=== PATIENT | female | born 1955 | race Caucasian/White ===

== ENCOUNTER 2022-01-13 11:53 | Day surgery (SDC) | payer BC ==
[~2022-01-13] VITALS: Ht 160 cm; Wt 62.7 kg
[2022-01-13] MEDS ORDERED: ALPRAZOLAM0.5 MG PO (12:08)
[2022-01-13] MEDS ORDERED: ARMOUR THYROID15 MG PO (12:09)
[2022-01-13] MEDS ORDERED: LISINOPRIL5 MG PO (12:09)
[2022-01-13] MEDS ORDERED: ESZOPICLONE2 MG PO (12:09)
[2022-01-13] MEDS ORDERED: ATORVASTATIN CA20 MG PO (12:09)
[2022-01-13] MEDS ORDERED: PREMPRO 0.45-11 EACH PO (12:10)
[2022-01-13] MEDS ORDERED: URSODIOL300 MG PO (12:10)
[2022-01-13] MEDS ORDERED: ADULT LOW DOSE81 MG PO (12:26)
[2022-01-13] MEDS ORDERED: CENTRAVITES 501 EACH PO (12:27)
--- NOTE | 2022-01-13 14:13 | NUR ---
01/13/22 1413 Vijaya Joseph 1352 PT ARRIVED IN PACU SLEEPY WITH NO C/O'S. ABD SOFT. 1405 DR AT BEDSIDE. 1413 RESTING. REU.
--- NOTE | 2022-01-14 17:36 | OR ---
[facility] [address] [place], [place] [address] Signed DATE OF OPERATION: 01/13/2022 SURGEON: Janes Tejeda MD PREOPERATIVE DIAGNOSES: 1. Colon screening. 2. Known history of diverticulosis. POSTOPERATIVE DIAGNOSES: 1. Olivo-diverticulosis (extensive). 2. Probable polyp at 45 cm (excised). PROCEDURE: Total colonoscopy to cecum with cold morcellation polypectomy x1. ANESTHESIA: Intravenous sedation; fentanyl 150 mcg, Versed 7 mg. INDICATION: This 66-year-old white woman is a patient of DONAVAN Bush. Eleven years ago, she underwent colonoscopy by Dr. Ghassan Mohr in [place]. She was found to have no sign of polyps, but did have extensive diverticulosis. She is currently symptom free without bleeding, diarrhea, or constipation and has no family history of colon cancer. She is admitted to undergo colonoscopy, understands the risks of bleeding, infection, perforation. FINDINGS: Prep was good. Complete colonoscopy was undertaken to the cecum without question. Good visualization of the ileocecal valve and appendiceal orifice was noted. She had diverticula extending throughout the entire colon, making the procedure somewhat challenging, but accomplished safely. There was an area of mucosal thickening about 35 to 45 cm, which may or may not represent adenomatous polyp, but it was excised with cold morcellation technique. DESCRIPTION OF PROCEDURE: The patient was brought to the endoscopy suite and placed in lateral decubitus position given intravenous sedation to the point of slurred speech and nystagmus. Digital rectal examination was normal. An Olympus video colonoscope was passed in the rectum and manipulated throughout the Electronically Signed By: JANES TEJEDA MD 01/14/22 1736 PATIENT NAME: EUGENIA SANTANA OPERATIVE REPORT DATE OF : 59 REPORT #: [id number] PHYSICIAN: JANES TEJEDA MD PCP: JERICHO BERG PA-C REPORT IS CONFIDENTIAL AND NOT TO BE RELEASED WITHOUT AUTHORIZATION [facility] [address] [place], [place] [address] Signed colon. Numerous diverticula were seen in the sigmoid and left colon. Passage through this area was somewhat challenging due to angulation deformity and so on. Ultimately, the scope was passed to the cecum. The ileocecal valve and appendiceal orifice were clearly identified and normal. Abdominal wall palpation confirmed this as well. The scope was withdrawn and examination throughout showed only diverticulosis throughout until about 45 to 35 cm from the anal verge, where a mucosal lesion was noted, this was excised with cold morcellation technique. It is uncertain if this is truly an adenomatous polyp or simply an area of hyperplasia. Further withdrawal showed only diverticulosis. Retroflexed view in the rectum was normal. Scope was removed. The patient was taken to the recovery room in good condition. CONCLUDING DIAGNOSES: 1. Olivo-diverticulosis. 2. Possible polyp at 35 to 45 cm. PLAN: If adenomatous polyp was noted, repeat colonoscopy in 5 years if normal 10 years. I would recommend high-fiber diet as well. MD NANCY Lobo/GAYATRI /[id number] cc: MD Jericho Guzman PA Copies: GHASSAN MOHR MD ~ Electronically Signed By: JANES TEJEDA MD 01/14/22 1736 PATIENT NAME: EUGENIA SANTANA OPERATIVE REPORT DATE OF : 59 REPORT #: [id number] PHYSICIAN: JANES TEJEDA MD PCP: JERICHO BERG PA-C REPORT IS CONFIDENTIAL AND NOT TO BE RELEASED WITHOUT AUTHORIZATION
--- NOTE | 2022-01-16 17:04 | PATH ---
[facility] [address] [place], [place] [address] Signed SPECIMEN(S): A SIGMOID BIOPSY SPECIMEN(S): B SIGMOID POLYP AT 35 CM SPECIMEN SOURCE: A. SIGMOID BIOPSY B. SIGMOID POLYP AT 35 CM CLINICAL HISTORY: Screening. Postop diagnosis: Olivo diverticulosis, sigmoid polyp FINAL PATHOLOGIC DIAGNOSIS: A. Colon, sigmoid, biopsy: - Features consistent with diverticular associated colitis. B. Colon, sigmoid, 35 cm, polypectomy: - Benign colonic mucosa with prominent intramucosal lymphoid aggregate. - No evidence of neoplasia. COMMENT: Regarding specimen A, the sections through the colonic biopsy show a focal patchy increase in the number of mononuclear cells in the lamina propria. These consist of a mixture of lymphocytes and plasma cells. In addition, there is a mild increase in the number of lymphocytes within the crypts. Features such as this, are frequently seen in areas near diverticula. 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 There is no acute inflammation. However, the epithelium shows an increase and expansion of the proliferative zone. The focality of the process is compatible with this change being located near diverticula. In contrast to diverticulitis where the inflammation is in the diverticulum, diverticula associated colitis is a mucosal change in the area adjacent to the mouths of the diverticula. Regarding specimen B, sections of colonic tissue demonstrate a benign intramucosal lymphoid aggregate. Intramucosal lymphoid aggregates can sometimes appear as polyps endoscopically. They have no clinical significance. There is no evidence of dysplasia or malignancy. INA:aleksandr:[id number] MICROSCOPIC EXAMINATION: Histologic sections of all submitted blocks are examined by light microscopy. These findings, together with the gross examination, support the pathologic PATIENT NAME: EUGENIA SANTANA PATHOLOGY DATE OF : 59 REPORT #: [id number] PHYSICIAN: DANISHA KELLER PCP: JERICHO BERG PA-C REPORT IS CONFIDENTIAL AND NOT TO BE RELEASED WITHOUT AUTHORIZATION [facility] [address] [place], [place] [address] Signed diagnosis. GROSS DESCRIPTION: Two specimens are received in two containers, labeled "PK." A. The specimen, labeled "sigmoid biopsy," is received in formalin and consists of four moreno soft tissue fragments that measure 0.1 to 0.2 cm in greatest dimension. The specimen is entirely submitted in cassette (A1). B. The specimen, labeled "sigmoid polyp at 35 cm," is received in formalin and consists of one moreno soft tissue fragment that measures 0.3 cm in greatest dimension. The specimen is entirely submitted in cassette (B1). HH (under the direct supervision of a pathologist) The Gross Description was prepared using a voice recognition system. The report was reviewed for accuracy; however, sound-alike word errors, addition and/or deletions may occur. If there is any question about this report, please contact Client Services. PERFORMING LABORATORY: The technical component was performed by [facility], [address] [place] [id number] (CLIA# [id number]). The professional interpretation was performed by [facility], [facility], [address] [place] [address] (CLIA#: [id number]). Diagnostician: Shawn Dawson MD Pathologist Electronically Signed 01/16/2022 Copies: ~ PATIENT NAME: MAXEUGENIAASHLIE PHOENIXE PATHOLOGY DATE OF : 59 REPORT #: [id number] PHYSICIAN: DANISHA PATHOLOGY PCP: JERICHO BERG PA-C REPORT IS CONFIDENTIAL AND NOT TO BE RELEASED WITHOUT AUTHORIZATION
== END 2022-01-13 14:40 | disposition home or self-care (01) ==
LOC: OPS 11:53 → DS 11:53 → OPS 13:00
PROVIDERS: ATTEND Surgery
PROC: 0DBE8ZZ Excision of Large Intestine, Via Natural or Artificial Opening Endoscopic (ICD-10-PCS; principal; 2022-01-13 13:00)
DX: Z12.11 Encounter for screening for malignant neoplasm of colon (principal); K57.30 Diverticulosis of large intestine without perforation or abscess without bleeding; Z90.49 Acquired absence of other specified parts of digestive tract; K63.5 Polyp of colon
CPT/HCPCS: 99153; G0500; J2250; J3010